=== PATIENT | female | born 1975 | race African-American/Black ===

== ENCOUNTER 2019-03-13 20:23 | Inpatient (IN) | payer OTHER ==
--- NOTE | 2019-03-13 21:34 | PDOC ---
History of Present Illness - General Chief Complaint: Pain Stated Complaint: ABD/PAIN/APPETITE LOSS Time Seen by Provider: 03/13/19 21:08 - History of Present Illness Initial Comments: 03/13/19 21:33 CHIEF COMPLAINT: multiple complaints HISTORY OF PRESENT ILLNESS: 44 yo F with hx of no significant PMH presents to ED with abd pain x 1 week accompanied with dysuria and pain with pain with BMs ( last BM was today and "loose"). Patient reports being concerned that she has been having unprotected sex and that she has had brownish/yellow vaginal discharge. LMP 10/16. Patient also c/o of headache, chills, and weight loss. However patient reports she was able to tolerate po today and had a chicken salad this afternoon. No recent travel or sick contacts. PAST MEDICAL HISTORY: Denies past medical history FAMILY HISTORY: Denies SOCIAL HISTORY: Denies tobacco, alcohol, illicit drug use. SURGICAL HISTORY: Denies ALLERGIES: PCN REVIEW OF SYSTEMS General/Constitutional: Chills, weight loss. Denies weakness. HEENT: Denies change in vision. Denies ear pain or discharge. Denies sore throat. Cardiovascular: Denies chest pain or shortness of breath. Respiratory: Denies cough, wheezing, or hemoptysis. Gastrointestinal: Denies nausea, vomiting, diarrhea or constipation. Denies rectal bleeding. Genitourinary: Brown/yellow vaginal discharge. Dysuria, denies hematuria. Musculoskeletal: Denies joint or muscle swelling or pain. Denies neck or back pain. Skin and breasts: Denies rash or easy bruising. Neurologic: Denies headache, vertigo, loss of consciousness, or loss of sensation. Psychiatric: Denies depression or anxiety. PHYSICAL EXAM General Appearance: Well-appearing, appropriately dressed. No apparent distress , no intoxication. HEENT: EOMI, PERRLA, normal ENT inspection, normal voice, TMs normal, pharynx normal. No conjunctival pallor. No photophobia, scleral icterus. Neck: Supple. Trachea midline. No tenderness, rigidity, carotid bruit, stridor , lymphadenopathy, or thyromegaly. Respiratory/Chest: Lungs CTAB. No shortness of breath, chest tenderness, respiratory distress, accessory muscle use. No crackles, rales, rhonchi, stridor , wheezing, dullness Cardiovascular: RRR. S1, S2. No JVD, murmur, bradycardia, tachycardia. Vascular Pulses: Dorsalis-Pedis (R): 2+, Dorsalis-Pedis (L): 2+ Gastrointestinal/Abdominal: TTP to b/l lower pelvis. Normal bowel sounds. No organomegaly, pulsatile mass, guarding, hernia, hepatomegaly, splenomegaly. Pelvic: External genitalia normal without lesions. Vaginal vault is clear without blood or discharge. Cervix is long and closed. +Cervical motion tenderness. Uterus is nontender and normal in size. Bilateral adnexal tenderness. Lymphatic: No adenopathy, tenderness. Musculoskeletal/Extremities: Normal inspection. FROM of all extremities, normal capillary refill. Pelvis Stable. No CVA tenderness. No tenderness to extremities, pedal edema, swelling, erythema or deformity. Integumentary: Appropriate color, dry, warm. No cyanosis, erythema, jaundice or rash Neurologic: regional account executive II-XII intact. Fully oriented, alert. Appropriate mood/affect. Motor strength 5/5. No appreciable EOM palsy, facial droop or sensory deficit. 03/13/19 21:40 Past History - Past Medical History Allergies/Adverse Reactions: Allergies Allergy/AdvReac Type Severity Reaction Status Date / Time Penicillins Allergy Hives Verified 03/14/19 02:41 Home Medications: Ambulatory Orders Doxycycline Hyclate 100 mg PO BID #14 tablet 03/14/19 - Psycho Social/Smoking Cessation Hx Smoking Status: No Smoking History: Never smoked Have you smoked in the past 12 months: No Number of Cigarettes Smoked Daily: 0 Information on smoking cessation initiated: No 'Breaking Loose' booklet given: 06/11/18 Hx Alcohol Use: No Drug/Substance Use Hx: No *Physical Exam - Vital Signs Last Vital Signs Temp Pulse Resp BP Pulse Ox 100.5 F H 115 H 20 124/67 97 03/13/19 20:32 03/13/19 20:32 03/13/19 20:32 03/13/19 20:32 03/13/19 20:32 ED Treatment Course - LABORATORY CBC & Chemistry Diagram: 03/14/19 07:41 03/14/19 07:41 Medical Decision Making - Medical Decision Making 03/13/19 21:41 44 yo F with hx of no significant PMH presents to ED with abd pain x 1 week accompanied with dysuria and pain with pain with BMs (last BM was today and "loose"). -urine -labs -tylenol 03/14/19 01:21 WBC 25, fluids given. US results: Left ovary not seen. No right ovarian torsion . Color flow with appropriate arterial and/or venous waveforms. Multiple hemorrhagic follicles/cysts within enlarged right ovary, largest cyst 3.9 cm. No free fluid. Normal uterus. Endometrial stripe complex 10 mm thick Pelvic exam concerning for PID, will treat with ceftriaxone and doxy. 03/14/19 02:09 patient with rigors after administration of ceftriaxone -tylenol -benadryl Discussed case with MD Crouch, patient pending blood cx/lactate/ctap. Discharge - Discharge Information Problems reviewed: Yes Clinical Impression/Diagnosis: Pelvic inflammatory disease, Sepsis Condition: Stable - Additional Discharge Information - Follow up/Referral - Patient Discharge Instructions - Post Discharge Activity
[2019-03-13] MEDS ORDERED: ACETAMINOPHEN 325 MG TABLET (FP) PO ONE (21:41)
[2019-03-13 22:22] LABS: HYALINE CASTS 1 /lpf (0-8); PH,URINE >= 9.0 (5.0-8.0); URINE APPEARANCE CLEAR; URINE BACTERIA 77.9 /hpf (NEGATIVE); URINE BILIRUBIN NEGATIVE (NEGATIVE); URINE COLOR YELLOW; URINE GLUCOSE (UA) NEGATIVE (NEGATIVE); URINE KETONE NEGATIVE (NEGATIVE); URINE LEUK ESTERASE NEGATIVE (NEGATIVE); URINE NITRITE NEGATIVE (NEGATIVE); URINE PROTEIN 2+ (NEGATIVE); URINE WBC 4 /hpf (0-5)
[2019-03-13 23:50] LABS: BASO % 0.8 % (0-2.0); EOS % 0.2 % (0-4.5); HEMATOCRIT 26.3 % (32.4-45.2); HEMOGLOBIN 8.5 GM/dL (10.7-15.3); LYMPH % 8.2 % (8-40); MCH 28.8 pg (25.7-33.7); MCHC 32.2 g/dl (32.0-36.0); MEAN CELL VOLUME 89.7 fl (80-96); MEAN PLT VOLUME 7.4 fl (7.5-11.1); MONO % 8.3 % (3.8-10.2); NEUT % 82.5 % (42.8-82.8); PLATELET COUNT 458 K/MM3 (134-434); RBC 2.93 M/mm3 (3.60-5.2); RDW 15.5 % (11.6-15.6); WHITE BLOOD COUNT 25.6 K/mm3 (4.0-10.0)
[2019-03-14] MEDS ORDERED: SODIUM CHLORIDE 0.9% 500 ML INFUS.BAG IV ONE ×3 (00:03→05:39)
[2019-03-14 00:18] LABS: ALBUMIN 2.6 g/dl (3.4-5.0); BILIRUBIN,TOTAL 0.4 mg/dL (0.2-1); BLOOD UREA NITROGEN 12.9 mg/dL (7-18); CALCIUM 8.4 mg/dL (8.5-10.1); CREATININE 0.6 mg/dL (0.55-1.3); POTASSIUM 4.2 mmol/L (3.5-5.1)
[2019-03-14 00:51] LABS: PLATELET ESTIMATE SLT INCREASE
[2019-03-14] MEDS ORDERED: DOXYCYCLINE HYCLATE 100 MG CAPSULE PO ONE ×2 (01:18→01:28)
[2019-03-14] MEDS ORDERED: cefTRIAXone SODIUM 1 GM VIAL ONE (01:28)
[2019-03-14] MEDS ORDERED: LIDOCAINE HCL 1%, 10 MG/ML (20ML VIAL) ONE (01:28)
[2019-03-14] MEDS ORDERED: ACETAMINOPHEN 1000 MG/100 ML VIAL (NON FORMULARY) IVPB ONE (02:04)
[2019-03-14] MEDS ORDERED: ACETAMINOPHEN INJECTION 100 ML IVPB ONE (02:05)
[2019-03-14] MEDS ORDERED: KETOROLAC TROMETHAMINE 15 MG/ML VIAL IVPUSH ONE (03:11)
--- NOTE | 2019-03-14 03:14 | PDOC ---
*Physical Exam - Vital Signs Last Vital Signs Temp Pulse Resp BP Pulse Ox 101.9 F H 118 H 22 H 102/59 L 100 03/14/19 02:27 03/14/19 02:27 03/14/19 02:27 03/14/19 02:48 03/14/19 02:27 ED Treatment Course - LABORATORY CBC & Chemistry Diagram: 03/13/19 23:39 03/13/19 23:39 - ADDITIONAL ORDERS Additional order review: Laboratory Results 03/13/19 03/13/19 03/13/19 23:39 23:39 22:05 Sodium 132 L Potassium 4.2 Chloride 99 Carbon Dioxide 27 Anion Gap 6 L BUN 12.9 Creatinine 0.6 Est GFR (CKD-EPI)AfAm 130.30 Est GFR (CKD-EPI)NonAf 112.42 Random Glucose 104 Calcium 8.4 L Total Bilirubin 0.4 AST 37 ALT 48 Alkaline Phosphatase 106 Total Protein 7.0 Albumin 2.6 L Lipase 146 Urine Color Yellow Urine Appearance Clear Urine pH >= 9.0 H D Ur Specific [place] 1.022 Urine Protein 2+ H Urine Glucose (UA) Negative Urine Ketones Negative Urine Blood Negative Urine Nitrite Negative Urine Bilirubin Negative Urine Urobilinogen 1.0 Ur Leukocyte Esterase Negative Urine WBC (Auto) 4 Urine RBC (Auto) 4.0 Urine Casts (Auto) 1 U Epithel Cells (Auto) 5.0 Urine Bacteria (Auto) 77.9 Urine HCG, Qual 03/13/19 22:05 Sodium Potassium Chloride Carbon Dioxide Anion Gap BUN Creatinine Est GFR (CKD-EPI)AfAm Est GFR (CKD-EPI)NonAf Random Glucose Calcium Total Bilirubin AST ALT Alkaline Phosphatase Total Protein Albumin Lipase Urine Color Urine Appearance Urine pH Ur Specific [place] Urine Protein Urine Glucose (UA) Urine Ketones Urine Blood Urine Nitrite Urine Bilirubin Urine Urobilinogen Ur Leukocyte Esterase Urine WBC (Auto) Urine RBC (Auto) Urine Casts (Auto) U Epithel Cells (Auto) Urine Bacteria (Auto) Urine HCG, Qual Negative 03/13/19 23:39 RBC 2.93 L MCV 89.7 MCHC 32.2 RDW 15.5 MPV 7.4 L Neutrophils % 82.5 Lymphocytes % 8.2 Monocytes % 8.3 Eosinophils % 0.2 Basophils % 0.8 - Medications Given in the ED: ED Medications Discontinued Medications Generic Name Dose Route Start Last Admin Trade Name Freq PRN Reason Stop Dose Admin Acetaminophen 650 mg 03/13/19 21:41 03/13/19 21:55 Tylenol - PO 03/13/19 21:42 650 mg ONCE ONE Administration Acetaminophen 1,000 mg 03/14/19 02:04 03/14/19 02:08 Ofirmev Injection - IVPB 03/14/19 02:05 1,000 mg ONCE ONE Administration Ceftriaxone Sodium 250 mg 03/14/19 01:18 03/14/19 01:40 Rocephin - IM 03/14/19 01:19 250 mg ONCE ONE Administration Diphenhydramine HCl 50 mg 03/14/19 02:04 03/14/19 02:08 Benadryl Injection - IVPUSH 03/14/19 02:05 50 mg ONCE ONE Administration Doxycycline Hyclate 100 mg 03/14/19 01:18 03/14/19 01:32 Vibramycin - PO 03/14/19 01:19 100 mg ONCE ONE Administration Sodium Chloride 1,000 ml 03/14/19 00:03 03/14/19 01:26 Normal Saline - IV 03/14/19 00:04 1,000 ml ONCE ONE Administration Medical Decision Making - Medical Decision Making 03/14/19 03:11 pt signed out from CONSUMER INSIGHT ANALYST Jill at 2AM in summary, 44 YOF presenting with lower abdominal pain, fever and chills. on bedside exam, +abdomen diffusely tender and guarded, rigid. +fever and tachycardia - lactic and blood cultures ordered, urine cultures pending already. labs notable for high leukocytosis 25K. received IVF 1 liter, tylenol, ceftriaxone and doxycycline for the PID. GC/chlamydia sent. TVUS w/hemorrhagic cysts, no torsion 03/14/19 03:12 - dosed for additional IVF, toradol, CT a/p to eval for perf/intra abdominal source of infection. lactic is normal CT abdomen and pelvis with complex multiloculated right adnexal mass which is suspicious for hydrosalpinx/pyosalpinx and tubo-ovarian complex, suspicious for PID which pt is currently receiving IV ceftriaxone and doxycycline initially planned for outpatient tx, but now with inpatient requirements, broadened coverage to cefotetan 2g IV with doxycycline. low likelihood of cross reactivity with pcn allergy, as pt tolerated IM ceftriaxone. BUSINESS DEVELOPMENT REPRESENTATIVE consult in the AM, paged out to [facility] physician - for tonight. admit to medical service for PID/sepsis, IV abx, pain control, hydration, clinical reexam, school bus aide consult, admit to Dr Colon. 03/14/19 04:15 03/14/19 04:27 Discharge - Discharge Information Problems reviewed: Yes Clinical Impression/Diagnosis: Pelvic inflammatory disease, Sepsis Condition: Guarded - Admission Yes - Additional Discharge Information - Follow up/Referral - Patient Discharge Instructions - Post Discharge Activity
[2019-03-14] MEDS ORDERED: KETOROLAC TROMETHAMINE 15 MG/ML VIAL ONE (03:16)
--- NOTE | 2019-03-14 04:20 | PN ---
Teaching Attending Note Name of Resident: Yoly Perez ATTENDING PHYSICIAN STATEMENT I saw and evaluated the patient. I reviewed the resident's note and discussed the case with the resident. I agree with the resident's findings and plan as documented. SUBJECTIVE: 44-year-old woman with no reported past medical history complained of lower abdominal pain for 1 week associated with dysuria and some loose bowel movements. Patient mentioned that she was having brownish vaginal discharge the past few days. Complained of chills and fever of 101 Fahrenheit. She was not taking any medications for her abdominal pain. Denied any new sex partners. Is sexually active with her and denies other partners. No history of STDs reported being tested for HIV 2 years ago and result was negative. OBJECTIVE: Last Vital Signs Temp Pulse Resp BP Pulse Ox 101.9 F H 110 H 18 102/59 L 97 03/14/19 02:27 03/14/19 05:17 03/14/19 05:17 03/14/19 02:48 03/14/19 05:17 GENERAL: Well developed, well nourished. Awake and alert. No acute distress. HEENT: Normocephalic, atraumatic. PERRLA, EOMI. No conjunctival pallor. Sclera are non- icteric. Moist mucous membranes. Oropharynx is clear. NECK: Supple. Full ROM. No JVD. Carotid pulses 2+ and symmetric, without bruits. No thyromegaly. No lymphadenopathy. CARDIOVASCULAR: Regular rate and rhythm. No murmurs, rubs, or gallops. Distal pulses are 2+ and symmetric. PULMONARY: No evidence of respiratory distress. Lungs clear to auscultation bilaterally. No wheezing, rales or rhonchi. ABDOMINAL: Soft. Non-tender. Non-distended. Pain upon palpation to right lower and left lower quadrants as well as suprapubic tenderness MUSCULOSKELETAL Normal range of motion at all joints. No bony deformities or tenderness. No CVA tenderness. EXTREMITIES: No cyanosis. No clubbing. No edema. No calf tenderness. SKIN: Warm and dry. Normal capillary refill. No rashes. No jaundice. PSYCHIATRIC: Cooperative. Good eye contact. Appropriate mood and affect. On pelvic exam performed by ER, patient was noted to have cervical motion tenderness on pelvic exam and bilateral adnexal tenderness Abnormal Lab Results 03/13/19 03/13/19 03/13/19 22:05 23:39 23:39 WBC 25.6 H RBC 2.93 L Hgb 8.5 L Hct 26.3 L Plt Count 458 H MPV 7.4 L Absolute Neuts (auto) 21.2 H Sodium 132 L Anion Gap 6 L Calcium 8.4 L Albumin 2.6 L Urine pH >= 9.0 H D Urine Protein 2+ H Imaging studies reviewed 8.8 cm complex multiloculated right adnexal mass containing tubular portion, suspect hydrosalpinx or pyosalpinx with tubo-ovarian complex. Retroperitoneal lymph node enlargement, indeterminate. No bowel obstruction or inflammation ASSESSMENT AND PLAN: 44-year-old woman with suspected cervicitis and probable PID, Severe leukocytosis. Penicillin allergy with hives Send urine for GC/chlamydia NAAT Send RPR HIV serology Viral hepatitis serology ICE CREAM DISPENSER consult Pelvic and transvaginal ultrasound follow-up Levofloxacin plus metronidazole. Patient has underlying penicillin allergy documented and would be able to transition easily to p.o. with this regimen #DVT prophylaxisheparin subcutaneously
[2019-03-14] MEDS ORDERED: CEFOTETAN DISODIUM 2 GM in DEXTROSE 5%-WATER - 100 ML IVPB ONE (04:24)
[2019-03-14] MEDS ORDERED: ACETAMINOPHEN 325 MG TABLET (FP) PO PRN (05:18)
[2019-03-14] MEDS ORDERED: SODIUM CHLORIDE 1,000 ML IV SCH ×2 (05:30→08:16)
--- NOTE | 2019-03-14 05:50 | HP ---
CHIEF COMPLAINT: lower abdominal pain PCP: Dr. Castaneda HISTORY OF PRESENT ILLNESS: Ms. Luevano is a 44 year old lady with no reported pmhx, presenting to the ED complaining of 1 week of lower abdominal pain associated with yellowish/ brown vaginal discharge. The patient states that since her symptoms began she has tried to take aleve however this did not help at all. The pt has not noted anything that makes her symptoms better or worse. She states it hurts when she pees but denies burning. She states that she is in a monogamous relationship with her . She says that they do not use any type of contraception and the last time they had intercourse was in early January. Although they are , she reports they do not live together and she has not seen him in a few weeks. She states that she did not notice any pain with intercourse. She states she has a regular menstrual cycle and her periods usually last 5 days. Her LMP was at the end of January into early Mar and was normal. The patient reports she has not followed up with an PAINT MIXER in a few years but states she tested negative for HIV a year ago. On ROS the pt endorsed fevers/ chills/ pain on urination/ back pain and diarrhea. The patient denies CP, SOB, nausea/ vomiting, new rashes, itching, or hematuria. 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 Allergies Penicillins Allergy (Verified 03/14/19 02:41) Hives HOME MEDICATIONS: Home Medications Medication Instructions Recorded Doxycycline Hyclate 100 mg PO BID #14 tablet 03/14/19 REVIEW OF SYSTEMS CONSTITUTIONAL: fever, chills, Absent: diaphoresis, generalized weakness, malaise, loss of appetite, weight change HEENT: Absent: rhinorrhea, nasal congestion, throat pain, throat swelling, difficulty swallowing, mouth swelling, ear pain, eye pain, visual changes CARDIOVASCULAR: Absent: chest pain, syncope, palpitations, irregular heart rate, lightheadedness , peripheral edema RESPIRATORY: Absent: cough, shortness of breath, dyspnea with exertion, orthopnea, wheezing, stridor, hemoptysis GASTROINTESTINAL: abdominal pain, diarrhea, Absent: , abdominal distension, nausea, vomiting, constipation, melena, hematochezia GENITOURINARY: dysuria Absent: , frequency, urgency, hesitancy, hematuria, flank pain, genital pain MUSCULOSKELETAL: back pain, Absent: myalgia, arthralgia, joint swelling, neck pain SKIN: Absent: rash, itching, pallor HEMATOLOGIC/IMMUNOLOGIC: Absent: easy bleeding, easy bruising, lymphadenopathy, frequent infections ENDOCRINE: Absent: unexplained weight gain, unexplained weight loss, heat intolerance, cold intolerance NEUROLOGIC: Absent: headache, focal weakness or paresthesias, dizziness, unsteady gait, seizure, mental status changes, bladder or bowel incontinence PSYCHIATRIC: Absent: anxiety, depression, suicidal or homicidal ideation, hallucinations. PHYSICAL EXAMINATION Vital Signs - 24 hr 03/13/19 03/14/19 03/14/19 20:32 00:57 01:43 Temperature 100.5 F H 99.1 F Pulse Rate 115 H Pulse Rate [ 84 Left Radial] Respiratory 20 18 Rate Blood Pressure 124/67 Blood Pressure [Right Arm] O2 Sat by Pulse 97 Oximetry (%) 03/14/19 03/14/19 03/14/19 02:27 02:48 05:17 Temperature 101.9 F H Pulse Rate Pulse Rate [ 118 H 110 H Left Radial] Respiratory 22 H 18 Rate Blood Pressure Blood Pressure 128/107 H 102/59 L [Right Arm] O2 Sat by Pulse 100 97 Oximetry (%) GENERAL: Sleepy but arousable and fully oriented, in no acute distress. HEAD: Normal with no signs of trauma. EYES: Pupils equal, round and reactive to light, extraocular movements intact, sclera anicteric, conjunctiva clear. No lid lag. EARS, NOSE, THROAT: Ears normal, nares patent, oropharynx clear without exudates. Dry mucous membranes. NECK: Normal range of motion, supple without lymphadenopathy, JVD, or masses. LUNGS: Breath sounds equal, clear to auscultation bilaterally. No wheezes, and no crackles. No accessory muscle use. HEART: Regular rhythm, tachycardic, normal S1 and S2 without murmur, rub or gallop. ABDOMEN: Soft, nontender, not distended, normoactive bowel sounds, no guarding, no rebound, no masses. No hepatomegaly or splenomegaly. MUSCULOSKELETAL: Normal range of motion at all joints. No bony deformities or tenderness. No CVA tenderness. UPPER EXTREMITIES: 2+ pulses, warm, well-perfused. No cyanosis. No clubbing. No peripheral edema. LOWER EXTREMITIES: 2+ pulses, warm, well-perfused. No calf tenderness. No peripheral edema. NEUROLOGICAL: Cranial nerves II-XII intact. Normal speech. Normal gait. PSYCHIATRIC: Cooperative. Good eye contact. Appropriate mood and affect. SKIN: Warm, dry, normal turgor, no rashes or lesions noted, normal capillary refill. PELVIC EXAM done by ED, as follows: " External genitalia normal without lesions. Vaginal vault is clear without blood or discharge. Cervix is long and closed. +Cervical motion tenderness. Uterus is nontender and normal in size. Bilateral adnexal tenderness. " Laboratory Results - last 24 hr 03/13/19 03/13/19 03/13/19 22:05 22:05 23:39 WBC 25.6 H RBC 2.93 L Hgb 8.5 L Hct 26.3 L MCV 89.7 MCH 28.8 MCHC 32.2 RDW 15.5 Plt Count 458 H MPV 7.4 L Absolute Neuts (auto) 21.2 H Total Counted 100 Neutrophils % 82.5 Neutrophils % (Manual) 70.0 Band Neutrophils % 4.0 Lymphocytes % 8.2 Lymphocytes % (Manual) 16.0 Monocytes % 8.3 Monocytes % (Manual) 10 Eosinophils % 0.2 Basophils % 0.8 Nucleated RBC % 0 Platelet Estimate Slt increase Platelet Comment No clotting detected Sodium Potassium Chloride Carbon Dioxide Anion Gap BUN Creatinine Est GFR (CKD-EPI)AfAm Est GFR (CKD-EPI)NonAf Random Glucose Lactic Acid Calcium Total Bilirubin AST ALT Alkaline Phosphatase Total Protein Albumin Lipase Urine Color Yellow Urine Appearance Clear Urine pH >= 9.0 H D Ur Specific [place] 1.022 Urine Protein 2+ H Urine Glucose (UA) Negative Urine Ketones Negative Urine Blood Negative Urine Nitrite Negative Urine Bilirubin Negative Urine Urobilinogen 1.0 Ur Leukocyte Esterase Negative Urine WBC (Auto) 4 Urine RBC (Auto) 4.0 Urine Casts (Auto) 1 U Epithel Cells (Auto) 5.0 Urine Bacteria (Auto) 77.9 Urine HCG, Qual Negative 03/13/19 03/13/19 03/14/19 23:39 23:39 03:00 WBC RBC Hgb Hct MCV MCH MCHC RDW Plt Count MPV Absolute Neuts (auto) Total Counted Neutrophils % Neutrophils % (Manual) Band Neutrophils % Lymphocytes % Lymphocytes % (Manual) Monocytes % Monocytes % (Manual) Eosinophils % Basophils % Nucleated RBC % Platelet Estimate Platelet Comment Sodium 132 L Potassium 4.2 Chloride 99 Carbon Dioxide 27 Anion Gap 6 L BUN 12.9 Creatinine 0.6 Est GFR (CKD-EPI)AfAm 130.30 Est GFR (CKD-EPI)NonAf 112.42 Random Glucose 104 Lactic Acid 1.8 Calcium 8.4 L Total Bilirubin 0.4 AST 37 ALT 48 Alkaline Phosphatase 106 Total Protein 7.0 Albumin 2.6 L Lipase 146 Urine Color Urine Appearance Urine pH Ur Specific [place] Urine Protein Urine Glucose (UA) Urine Ketones Urine Blood Urine Nitrite Urine Bilirubin Urine Urobilinogen Ur Leukocyte Esterase Urine WBC (Auto) Urine RBC (Auto) Urine Casts (Auto) U Epithel Cells (Auto) Urine Bacteria (Auto) Urine HCG, Qual ASSESSMENT/PLAN: Ms. Luevano is a 44 year old lady with no reported pmhx, presenting to the ED complaining of 1 week of lower abdominal pain associated with yellowish/ brown vaginal discharge. CT Abdomen/ pelvis showing 8.8 cm complex multiloculated right adnexal mass containing tubular portion, suspect hydrosalpinx or pyosalpinx with tubo-ovarian complex. Retroperitoneal lymph node enlargement, indeterminate. No bowel obstruction or inflammation. # Cervicitis - probable PID given pelvic exam with + CMT, imaging suggestive of PID and severe leukocytosis. Penicillin allergy with hives - Send urine for GC/chlamydia NAAT - Send RPR - HIV serology - Viral hepatitis serology - PAINT MIXER consult, appreciate recommendations - F/u pelvic and transvaginal ultrasound - Levofloxacin 750mg IVPB daily plus metronidazole 500mg IVPB q8h> patient with penicillin allergy, this regimen allows easy transition to PO meds - Tylenol 650 PO q4h prn for pain #FEN - IVNS @ 100cc/h - replete PRN - regular diet #PPx - DVT prophylaxis: heparin 5000u SQ TID # Dispo- admit to medsurg, full code Visit type - Emergency Visit Emergency Visit: Yes ED Registration Date: 03/14/19 Care time: The patient presented to the Emergency Department on the above date and was hospitalized for further evaluation of their emergent condition. - New Patient This patient is new to me today: Yes Date on this admission: 03/14/19 - Critical Care Critical Care patient: No ATTENDING PHYSICIAN STATEMENT I saw and evaluated the patient. I reviewed the resident's note and discussed the case with the resident. I agree with the resident's findings and plan as documented. SUBJECTIVE: OBJECTIVE: ASSESSMENT AND PLAN:
[2019-03-14] MEDS ORDERED: HEPARIN NA (PORCINE) 5,000 UNITS/ML 1ML VIAL SQ SCH (06:00)
[2019-03-14] MEDS ORDERED: HEPARIN NA (PORCINE) 5,000 UNITS/ML 1ML VIAL ONE (06:15)
[2019-03-14] MEDS ORDERED: AZTREONAM 2 GM in DEXTROSE 5%-WATER 100 ML IVPB ONE (07:55)
--- NOTE | 2019-03-14 08:05 | PN ---
Teaching Attending Note Name of Resident: Zhao Vallejo ATTENDING PHYSICIAN STATEMENT I saw and evaluated the patient. I reviewed the resident's note and discussed the case with the resident. I agree with the resident's findings and plan as documented with exceptions below. SUBJECTIVE: Notified by ED RN of overnight, patient seen stat. Patient currently lethargic, weak, generalized abdominal pain, unchanged from admission. Also reports vaginal discharge for last 1 week. No reported fevers or chills, but decreased oral intake. OBJECTIVE: Vital Signs Period Temp Pulse Resp BP Sys/Ceballos Pulse Ox Last 24 Hr 98.2 F-101.9 F 84-118 17-22 84-128/52-107 97-100 Intake & Output 03/11/19 03/12/19 03/13/19 03/14/19 23:59 23:59 23:59 23:59 Intake Total 3000 Balance 3000 Weight 128 lb General: lethargic weak looking in bed Neck: soft, supple HEENT: dry mucous membrane Abdomen: generalized guarding and tenderness more in bilateral lower quadrant, rigidity noted, pos bowel sounds Extremities: no edema Home Medications Medication Instructions Recorded Doxycycline Hyclate 100 mg PO BID #14 tablet 03/14/19 Active Medications Acetaminophen (Tylenol -) 650 mg PO Q4H PRN PRN Reason: FEVER Chlorhexidine Gluconate (Hibiclens For Decolonization -) 1 applic TP HS [facility] Heparin Sodium (Porcine) (Heparin -) 5,000 unit SQ TID [facility] Last Admin: 03/14/19 06:18 Dose: Not Given Metronidazole (Flagyl 500mg Premixed Ivpb -) 500 mg in 100 mls @ 100 mls/hr IVPB Q8H-IV [facility] Last Admin: 03/14/19 07:37 Dose: 100 mls/hr Sodium Chloride (Normal Saline -) 1,000 mls @ 100 mls/hr IV ASDIR JULY Last Admin: 03/14/19 05:35 Dose: 100 mls/hr Levofloxacin (Levaquin 750 Mg Premixed Ivpb -) 750 mg in 150 mls @ 100 mls/hr IVPB DAILY [facility]; Protocol Aztreonam 2 gm/ Dextrose 100 mls @ 100 mls/hr IVPB ONCE ONE; Protocol Stop: 03/14/19 08:54 Mupirocin (Bactroban Ointment (For Decolonization) -) 1 applic NS BID [facility] Stop: 03/19/19 09:59 Laboratory Results - last 24 hr 03/13/19 03/13/19 03/13/19 22:05 22:05 23:39 WBC 25.6 H RBC 2.93 L Hgb 8.5 L Hct 26.3 L MCV 89.7 MCH 28.8 MCHC 32.2 RDW 15.5 Plt Count 458 H MPV 7.4 L Absolute Neuts (auto) 21.2 H Total Counted 100 Neutrophils % 82.5 Neutrophils % (Manual) 70.0 Band Neutrophils % 4.0 Lymphocytes % 8.2 Lymphocytes % (Manual) 16.0 Monocytes % 8.3 Monocytes % (Manual) 10 Eosinophils % 0.2 Basophils % 0.8 Nucleated RBC % 0 Platelet Estimate Slt increase Platelet Comment No clotting detected Sodium Potassium Chloride Carbon Dioxide Anion Gap BUN Creatinine Est GFR (CKD-EPI)AfAm Est GFR (CKD-EPI)NonAf Random Glucose Lactic Acid Calcium Total Bilirubin AST ALT Alkaline Phosphatase Total Protein Albumin Lipase Urine Color Yellow Urine Appearance Clear Urine pH >= 9.0 H D Ur Specific [place] 1.022 Urine Protein 2+ H Urine Glucose (UA) Negative Urine Ketones Negative Urine Blood Negative Urine Nitrite Negative Urine Bilirubin Negative Urine Urobilinogen 1.0 Ur Leukocyte Esterase Negative Urine WBC (Auto) 4 Urine RBC (Auto) 4.0 Urine Casts (Auto) 1 U Epithel Cells (Auto) 5.0 Urine Bacteria (Auto) 77.9 Urine HCG, Qual Negative 03/13/19 03/13/19 03/14/19 23:39 23:39 03:00 WBC RBC Hgb Hct MCV MCH MCHC RDW Plt Count MPV Absolute Neuts (auto) Total Counted Neutrophils % Neutrophils % (Manual) Band Neutrophils % Lymphocytes % Lymphocytes % (Manual) Monocytes % Monocytes % (Manual) Eosinophils % Basophils % Nucleated RBC % Platelet Estimate Platelet Comment Sodium 132 L Potassium 4.2 Chloride 99 Carbon Dioxide 27 Anion Gap 6 L BUN 12.9 Creatinine 0.6 Est GFR (CKD-EPI)AfAm 130.30 Est GFR (CKD-EPI)NonAf 112.42 Random Glucose 104 Lactic Acid 1.8 Calcium 8.4 L Total Bilirubin 0.4 AST 37 ALT 48 Alkaline Phosphatase 106 Total Protein 7.0 Albumin 2.6 L Lipase 146 Urine Color Urine Appearance Urine pH Ur Specific [place] Urine Protein Urine Glucose (UA) Urine Ketones Urine Blood Urine Nitrite Urine Bilirubin Urine Urobilinogen Ur Leukocyte Esterase Urine WBC (Auto) Urine RBC (Auto) Urine Casts (Auto) U Epithel Cells (Auto) Urine Bacteria (Auto) Urine HCG, Qual CT A/P prelim results reviewed - ASSESSMENT AND PLAN: 44 yof with severe sepsis, from PID/Suspect right hydro vs pyosalpinx -Severe sepsis -Right 8.8 cm adenexal mass, suspsect hydro vs pyosalpinx of tubo-ovarian complex -Pelvic Inflammatory disease Plan: Patient seen in ED, hypotensive, SBP 80s-90s on 4th Liter NS bolus, lethargic, tender rigid abdomen with guarding. ICU consulted, patient accepted. Called Dr. Olivas who is Ob-stock tracer loss prevention associate, case discussed in detail with her, explained the need for emergent evaluation and discussed current clinical findings and hemodynamics in detail with her. Will continue serial abdominal exams and monitor closely in ICU, follow up Ob- stock tracer eval Aztreonam x 1. Continue doxycycline/flagyl,. ID consult, informed. NPO for now, hold DVTPPx Total critical care time at bedside spent 25 min Total time spent in patient visit, discussion with ED RN, co-ordination of care with ICU, ob-stock tracer 45 min.
[2019-03-14 08:07] LABS: BASO % 0.1 % (0-2.0); HEMATOCRIT 27.6 % (32.4-45.2); LYMPH % 3.2 % (8-40); MCH 29.7 pg (25.7-33.7); MCHC 32.7 g/dl (32.0-36.0); MEAN CELL VOLUME 90.8 fl (80-96); MEAN PLT VOLUME 7.4 fl (7.5-11.1); MONO % 5.3 % (3.8-10.2); NEUT % 91.4 % (42.8-82.8); PLATELET COUNT 416 K/MM3 (134-434); RBC 3.04 M/mm3 (3.60-5.2); RDW 15.8 % (11.6-15.6); WHITE BLOOD COUNT 23.8 K/mm3 (4.0-10.0)
--- NOTE | 2019-03-14 08:16 | CONSULT ---
Consultation: REQUESTING PROVIDER: Dr. Pinto CONSULT REQUEST: We have been asked to medically evaluate this patient for ICU admission HISTORY OF PRESENT ILLNESS: Patient is a 44 year old female with no reported significant medical/ surgical history presents with complaint of right sided abdominal pain. Symptoms ongoing for past week, without clear inciting factor. Patient has been taking Tylenol without palliative effect. Denies recent antibiotic use. She endorses associated brown/ yellow vaginal discharge. She endorses subjective fevers, chills, nausea. Denies chest pain, palpitations, shortness of breath. 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 Currently not sexually active, however states her only partner is . Denies any former diagnosis of STI. States she was last tested for HIV 1 year ago and was negative. REVIEW OF SYSTEMS: As per HPI PHYSICAL EXAMINATION Vital Signs - 24 hr 03/13/19 03/14/19 03/14/19 20:32 00:57 01:43 Temperature 100.5 F H 99.1 F Pulse Rate 115 H Pulse Rate [ 84 Left Radial] Respiratory 20 18 Rate Blood Pressure 124/67 Blood Pressure [Right Arm] O2 Sat by Pulse 97 Oximetry (%) 03/14/19 03/14/19 03/14/19 02:27 02:48 05:17 Temperature 101.9 F H Pulse Rate Pulse Rate [ 118 H 110 H Left Radial] Respiratory 22 H 18 Rate Blood Pressure Blood Pressure 128/107 H 102/59 L [Right Arm] O2 Sat by Pulse 100 97 Oximetry (%) 03/14/19 03/14/19 03/14/19 05:39 06:00 06:23 Temperature 98.6 F Pulse Rate Pulse Rate [ 106 H Left Radial] Respiratory 18 Rate Blood Pressure Blood Pressure 85/52 L 90/58 L [Right Arm] O2 Sat by Pulse 97 Oximetry (%) 03/14/19 03/14/19 07:35 07:40 Temperature 98.2 F Pulse Rate Pulse Rate [ 105 H Left Radial] Respiratory 17 Rate Blood Pressure Blood Pressure 84/60 L [Right Arm] O2 Sat by Pulse 99 98 Oximetry (%) GENERAL: Sleepy, arousable to voice, fully oriented, in no acute distress. HEAD: Normal with no signs of trauma. EYES: Pupils equal, round and reactive to light, extraocular movements intact, sclera anicteric, conjunctiva clear. No lid lag. EARS, NOSE, THROAT: Ears normal, nares patent, oropharynx clear without exudates. Moist mucous membranes. NECK: Normal range of motion, supple without lymphadenopathy, JVD, or masses. LUNGS: Breath sounds equal, clear to auscultation bilaterally. No wheezes, and no crackles. No accessory muscle use. HEART: Regular rate and rhythm, normal S1 and S2 without murmur, rub or gallop. ABDOMEN: Tense, with guarding. Diffusely tender to palpation worst at right lower quadrant. Normomoactive bowel sounds X4 quadrants. MUSCULOSKELETAL: Normal range of motion at all joints. No bony deformities or tenderness. No CVA tenderness. UPPER EXTREMITIES: 2+ pulses, warm, well-perfused. No cyanosis. No clubbing. Cap refill <2 seconds. No peripheral edema. LOWER EXTREMITIES: 2+ pulses, warm, well-perfused. No calf tenderness. No peripheral edema. NEUROLOGICAL: Cranial nerves II-XII intact. Normal speech. Normal gait. PSYCHIATRIC: Cooperative. Good eye contact. Appropriate mood and affect. SKIN: Warm, dry, normal turgor, no rashes or lesions noted. Laboratory Results - last 24 hr 03/13/19 03/13/19 03/13/19 22:05 22:05 23:39 WBC 25.6 H RBC 2.93 L Hgb 8.5 L Hct 26.3 L MCV 89.7 MCH 28.8 MCHC 32.2 RDW 15.5 Plt Count 458 H MPV 7.4 L Absolute Neuts (auto) 21.2 H Total Counted 100 Neutrophils % 82.5 Neutrophils % (Manual) 70.0 Band Neutrophils % 4.0 Lymphocytes % 8.2 Lymphocytes % (Manual) 16.0 Monocytes % 8.3 Monocytes % (Manual) 10 Eosinophils % 0.2 Basophils % 0.8 Nucleated RBC % 0 Platelet Estimate Slt increase Platelet Comment No clotting detected Sodium Potassium Chloride Carbon Dioxide Anion Gap BUN Creatinine Est GFR (CKD-EPI)AfAm Est GFR (CKD-EPI)NonAf Random Glucose Lactic Acid Calcium Total Bilirubin AST ALT Alkaline Phosphatase Total Protein Albumin Lipase Urine Color Yellow Urine Appearance Clear Urine pH >= 9.0 H D Ur Specific [place] 1.022 Urine Protein 2+ H Urine Glucose (UA) Negative Urine Ketones Negative Urine Blood Negative Urine Nitrite Negative Urine Bilirubin Negative Urine Urobilinogen 1.0 Ur Leukocyte Esterase Negative Urine WBC (Auto) 4 Urine RBC (Auto) 4.0 Urine Casts (Auto) 1 U Epithel Cells (Auto) 5.0 Urine Bacteria (Auto) 77.9 Urine HCG, Qual Negative 03/13/19 03/13/19 03/14/19 23:39 23:39 03:00 WBC RBC Hgb Hct MCV MCH MCHC RDW Plt Count MPV Absolute Neuts (auto) Total Counted Neutrophils % Neutrophils % (Manual) Band Neutrophils % Lymphocytes % Lymphocytes % (Manual) Monocytes % Monocytes % (Manual) Eosinophils % Basophils % Nucleated RBC % Platelet Estimate Platelet Comment Sodium 132 L Potassium 4.2 Chloride 99 Carbon Dioxide 27 Anion Gap 6 L BUN 12.9 Creatinine 0.6 Est GFR (CKD-EPI)AfAm 130.30 Est GFR (CKD-EPI)NonAf 112.42 Random Glucose 104 Lactic Acid 1.8 Calcium 8.4 L Total Bilirubin 0.4 AST 37 ALT 48 Alkaline Phosphatase 106 Total Protein 7.0 Albumin 2.6 L Lipase 146 Urine Color Urine Appearance Urine pH Ur Specific [place] Urine Protein Urine Glucose (UA) Urine Ketones Urine Blood Urine Nitrite Urine Bilirubin Urine Urobilinogen Ur Leukocyte Esterase Urine WBC (Auto) Urine RBC (Auto) Urine Casts (Auto) U Epithel Cells (Auto) Urine Bacteria (Auto) Urine HCG, Qual Active Medications Generic Name Dose Route Start Last Admin Trade Name Freq PRN Reason Stop Dose Admin Acetaminophen 650 mg 03/14/19 05:18 Tylenol - PO Q4H PRN FEVER Chlorhexidine Gluconate 1 applic 03/14/19 22:00 Hibiclens For Decolonization - TP HS JULY Heparin Sodium (Porcine) 5,000 unit 03/14/19 06:00 03/14/19 06:18 Heparin - SQ Not Given TID JULY Metronidazole 500 mg in 100 mls @ 100 mls/hr 03/14/19 07:00 03/14/19 07:37 Flagyl 500mg Premixed Ivpb - IVPB 100 mls/hr Q8H-IV JULY Administration Sodium Chloride 1,000 mls @ 100 mls/hr 03/14/19 05:30 03/14/19 05:35 Normal Saline - IV 100 mls/hr ASDIR JULY Administration Levofloxacin 750 mg in 150 mls @ 100 mls/hr 03/14/19 10:00 Levaquin 750 Mg Premixed Ivpb - IVPB DAILY JULY Protocol Aztreonam 2 gm/ Dextrose 100 mls @ 100 mls/hr 03/14/19 07:55 IVPB 03/14/19 08:54 ONCE ONE Protocol Mupirocin 1 applic 03/14/19 10:00 Bactroban Ointment (For Decolonization) - NS 03/19/19 09:59 BID [facility] ASSESSMENT/PLAN: Severe sepsis secondary to pylosalpinx, PID Anemia Hyponatremia (resolved) Neurologic -Patient is sleepy, arousable to voice. AO x3. -Monitor for signs of mental status changes Cardiac -Tachycardic to 104, likely secondary to severe sepsis. -Telemetry monitoring while in ICU Pulmonary -Patient currently saturating well on room air. -Maintain oxygen saturation greater than 90% Infectious disease Severe sepsis secondary to pylosalpinx, PID -Doxycycline, Flagyl. Penicillin allergy noted. -ID evaluation (Dr. Alvarado) appreciated. -Transvaginal US reveals negative right sided ovarian torsion. Noted enlarged ovary with multiple hemorrhagic follicles, cysts. Negative free fluid. -CT abdomen, pelvis reveals 8.8cm complex multiloculated right adnexal mass concerning for hydrosalpinx/ pylosalpinx vs. malignancy. 4.0 cm hypodensity concerning for ovarian cyst. Negative free fluid, free air. Appendix unremarkable. -OBGYN evaluation appreciated. Will transfer patient to tertiary care facility for higher level of care. FEN -Fluids: IV normal saline bolus -Electrolytes: Follow BMP, replete as necessary -Nutrition: NPO pending OBGYN evaluation Prophylaxis -SCD bilateral lower extremity. Holding chemical anticoagulation pending OBGYN evaluation Disposition We will continue to follow the patient. Thank you for this consultative opportunity. Patient for transfer patient to tertiary care facility for higher level of care. Visit type - Emergency Visit Emergency Visit: Yes ED Registration Date: 03/14/19 Care time: The patient presented to the Emergency Department on the above date and was hospitalized for further evaluation of their emergent condition. - New Patient This patient is new to me today: Yes Date on this admission: 03/14/19 - Critical Care Critical Care patient: Yes Total Critical Care Time (in minutes): 36 Critical Care Statement: The care of this patient involved high complexity decision making to prevent further life threatening deterioration of the patient 's condition and/or to evaluate & treat vital organ system(s) failure or risk of failure. ATTENDING PHYSICIAN STATEMENT I saw and evaluated the patient. I reviewed the resident's note and discussed the case with the resident. I agree with the resident's findings and plan as documented. SUBJECTIVE: OBJECTIVE: ASSESSMENT AND PLAN:
[2019-03-14 08:22] LABS: ALBUMIN 2.2 g/dl (3.4-5.0); BILIRUBIN,TOTAL 0.3 mg/dL (0.2-1); BLOOD UREA NITROGEN 8.2 mg/dL (7-18); CALCIUM 7.1 mg/dL (8.5-10.1); CREATININE 0.9 mg/dL (0.55-1.3); MAGNESIUM 1.7 mg/dL (1.8-2.4); POTASSIUM 3.7 mmol/L (3.5-5.1); TOT PROT 5.8 g/dl (6.4-8.2)
[2019-03-14] MEDS ORDERED: MAGNESIUM SULF 50% (8.12 MEQ/2 ML-1 GM VIAL) IVPB ONE (08:24)
[2019-03-14] MEDS ORDERED: MAGNESIUM SULF 50% (8.12 MEQ/2 ML-1 GM VIAL) ONE (08:27)
--- NOTE | 2019-03-14 09:08 | CONSULT ---
Consult Consult Specialty:: MEDICAL RESEARCH TECH Reason for Consultation:: Suspected PID, TOA - History of Present Illness Chief Complaint: RLQ pain History of Present Illness: 44yo presented to the ER with R sided abdominal pain x 1 week, accompanied with loose stools. Non radiating. No N/V. No fevers/chills. No sick contacts. Reports yellow/brownish vaginal discharge <1 week. Sexually active with her , last in January. LMP in Jan 2019, regular cycles No history of abnormal paps or STI's Reports MEDICAL RESEARCH TECH in [facility] History of LSO 3-4 yrs ago for ovarian cyst. Known history of small Right ovarian cyst - History Source History Provided By: Patient Limitations to Obtaining History: No Limitations - Past Medical History BECK OPERATOR: No: Alzheimer's, CVA, Dementia, Migraine, Multiple Sclerosis, Peripheral Neuropathy, Parkinson's, Seizure, Syncope, TIA, Vertigo, Other Cardio/Vascular: No: AFIB, Aneurysm, Aortic Insufficiency, Aortic Stenosis, CAD , CHF, Deep Vein Thrombosis, HTN, Hyperlipdemia, VT, Mitral Insufficiency, Mitral Stenosis, Murmur, Pulmonary Hypertension, Other Pulmonary: No: Asthma, Bronchitis, Cancer, COPD, O2 Dependent, Pneumonia, Previously Intubated, Pulmonary Embolus, Pulmonary Fibrosis, Sleep Apnea, Other Gastrointestinal: No: Ascites, Cancer, Constipation, Crohn's Disease, Diverticulitis, Diverticulosis, Esophageal Varices, Gastritis, GERD, GI Bleed, Hemorrhoids, Hiatal Hernia, Inflamatory Bowel Disease, Irritable Bowel Disease, Pancreatitis, Peptic Ulcer Disease, Ulcerative Colitis, Other Hepatobiliary: No: Cirrhosis, Cholelithiasis, Cholecystitis, Choledocholithiasis , Hepatitis A, Hepatitis B, Hepatitis C, Other Renal/: No: Renal Failure, Renal Inusuff, BPH, Cancer, Hematuria, Hemodialysis , Neurogenic Bladder, Renal Calculi, UTI, Other ...LMP Comment: January 2019 ...: No ...: 1 ...Para: 1 Infectious Disease: No: AIDS, C-Diff, Herpes Zoster, HIV, MRSA, STD's, Tuberculosis, VREF, Other - Past Surgical History Additional Surgical History: Left Salpingo-oophrectomy- laparoscopic - Alcohol/Substance Use Hx Alcohol Use: No History of Substance Use: reports: None - Smoking History Smoking history: Never smoked Have you smoked in the past 12 months: No Aproximately how many cigarettes per day: 0 - Social History Usual Living Arrangement: With Spouse ADL: Independent History of Recent Travel: No Home Medications - Allergies Allergies/Adverse Reactions: Allergies Allergy/AdvReac Type Severity Reaction Status Date / Time Penicillins Allergy Hives Verified 03/14/19 02:41 - Home Medications Home Medications: Ambulatory Orders Doxycycline Hyclate 100 mg PO BID #14 tablet 03/14/19 Review of Systems - Review of Systems Constitutional: reports: Weakness Gastrointestinal: reports: Abdominal Pain, Diarrhea Genitourinary: reports: Other (vaginal discharge) Physical Exam Vital Signs: Vital Signs Temperature 98.2 F 03/14/19 07:35 Pulse Rate 105 H 03/14/19 08:18 Respiratory Rate 18 03/14/19 08:18 Blood Pressure 90/64 03/14/19 08:18 O2 Sat by Pulse Oximetry (%) 95 03/14/19 08:18 Constitutional: Yes: Well Nourished, No Distress, Calm Gastrointestinal: Yes: Other (soft, RLQ tenderness, no rebound, +voluntary guarding) Labs: CBC, BMP 03/14/19 07:41 03/14/19 07:41 Imaging - Results Cat Scan: Image Reviewed Ultrasound: Image Reviewed Assessment/Plan 44yo with presumed PID w/ TOA, sepsis Chart including labs and vitals reviewed. GC/CT collected, pending, although low suspicion given monogamous, no history of STIs, and age demographic not typical for PID 2/2 GC/CT. No official report from imaging CT/TVUS yet. Images reviewed- enlarged R adnexal mass separate from ovary. Already known history of R ovarian cyst ( either stable or slightly enlarged from when originally diagnosed) Appreciate ID recs for antibiotic regimen Needs IR evaluation for drainage of pelvic mass, MEDICAL RESEARCH TECH surgery not indicated- not clear MEDICAL RESEARCH TECH etiology, possible GI source and patient septic (hypotension, tachycardia, elevated WBC)- surgical intervention could further disseminate the infection. Recommend transfer to [facility] for further care given sepsis and Interventional radiology needs If condition changes, please consult OBGYN tangible personal property appraiser Joce Olivas MD
[2019-03-14 09:38] VITALS: BMI 24.6
[2019-03-14] MEDS ORDERED: DOXYCYCLINE HYCLATE 100 MG VIAL ONE ×2 (09:58→10:23)
[2019-03-14] MEDS ORDERED: DEXTROSE 5%-WATER 100 ML IVPB ONE ×2 (09:58→10:23)
[2019-03-14] MEDS ORDERED: DOXYCYCLINE INJECTION 100 MG in DEXTROSE 5%-WATER 100 ML IVPB SCH (10:00)
[2019-03-14] MEDS ORDERED: HYDROmorphone HCl 2 MG/ML VIAL IVPUSH ONE (10:30)
[2019-03-14 10:33] LABS: ANISOCYTOSIS 0; MACROCYTOSIS 0; PLATELET ESTIMATE NORMAL
[2019-03-14 10:34] LABS: RPR NONREACTIVE (NONREACTIVE)
[2019-03-14] MEDS ORDERED: MUPIROCIN 2% TOPICAL OINTMENT FOR DECOLONIZATION NS SCH (11:00)
--- NOTE | 2019-03-14 11:05 | PN ---
Progress Note (short form) - Note Progress Note: pipeline technician consult is done by Dr Olivas hence I will not do consult again . speak with Dr Olivas if any issues to be discussed
--- NOTE | 2019-03-14 12:00 | PN ---
Teaching Attending Note Name of Resident: Brandon Rocha ATTENDING PHYSICIAN STATEMENT I saw and evaluated the patient. I reviewed the resident's note and discussed the case with the resident. I agree with the resident's findings and plan as documented. SUBJECTIVE: Pt seen and examined in the ICU. Borderline hypotension, still with pelvic pain. CT A/P findings noted. OBJECTIVE: Vital Signs Period Temp Pulse Resp BP Sys/Ceballos Pulse Ox Last 24 Hr 98.2 F-101.9 F 84-118 14-22 84-128/52-107 95-100 Intake & Output 03/11/19 03/12/19 03/13/19 03/14/19 23:59 23:59 23:59 23:59 Intake Total 3000 Balance 3000 Weight 58.06 kg 63.049 kg Gen: NAD at rest Heart: RRR Lung: decreased breath sounds at the bases Abd: soft, TTP lower abdomen, no rebound Ext: no edema CBC, BMP 03/14/19 07:41 03/14/19 07:41 Active Medications Acetaminophen (Tylenol -) 650 mg PO Q4H PRN PRN Reason: FEVER Chlorhexidine Gluconate (Hibiclens For Decolonization -) 1 applic TP HS JULY Metronidazole (Flagyl 500mg Premixed Ivpb -) 500 mg in 100 mls @ 100 mls/hr IVPB Q8H-IV JULY Last Admin: 03/14/19 11:37 Dose: 100 mls/hr Levofloxacin (Levaquin 750 Mg Premixed Ivpb -) 750 mg in 150 mls @ 100 mls/hr IVPB DAILY JULY; Protocol Last Admin: 03/14/19 10:29 Dose: 100 mls/hr Doxycycline Hyclate 100 mg/ (Dextrose) 100 mls @ 100 mls/hr IVPB BID JULY Last Admin: 03/14/19 10:30 Dose: 100 mls/hr Sodium Chloride (Normal Saline -) 1,000 mls @ 150 mls/hr IV ASDIR JULY Last Admin: 03/14/19 08:17 Dose: 150 mls/hr Mupirocin (Bactroban Ointment (For Decolonization) -) 1 applic NS BID JULY Stop: 03/19/19 10:59 Last Admin: 03/14/19 11:37 Dose: 1 applic ASSESSMENT AND PLAN: r/o Tubo-Ovarian Abscess Sepsis Hyponatremia improved Anemia - continue IV antibiotics - f/u cultures - IVF boluses - monitor urine output, creatinine - for transfer to tertiary medical center per M1A1 TANK CREWMAN - DVT prophylaxis
--- NOTE | 2019-03-14 12:40 | PN ---
Progress Note (short form) - Note Progress Note: ID CONSULT DICTATED PID R/O TOA PCN ALLERGY AWAIT C/S EMPIRIC CEFOXITIN/ DOXYCYCLINE
--- NOTE | 2019-03-14 13:31 | CONS ---
INFECTIOUS DISEASE CONSULTATION DATE OF CONSULTATION: 03/14/2019 The patient is a 44-year-old female who is evaluated for PID, probable tubo-ovarian abscess. She is a 44-year-old female who was admitted with a 1-week history of worsening lower abdominal pain, dysuria, and pelvic pain with bowel movements. She also reported a vaginal discharge, with headache, chills, and weight loss. She was evaluated in the emergency room where a pelvic exam revealed cervical motion tenderness. Imaging studies of the abdomen showed a right adnexal mass. Her course was complicated by white blood cell count 25,000. Patient is and monogamous. She is sexually active with her . However, has not been active for the past month or so. She denies prior history of sexually transmitted diseases. Denies risk factors for HIV. PAST MEDICAL HISTORY: Essentially negative. ALLERGIES: PENICILLIN. Patient reports developing hives. MEDICATIONS: Tylenol, doxycycline, Bactroban, Hibiclens. SOCIAL HISTORY: Resides at home with significant other. No active tobacco or alcohol use. SYSTEMS REVIEW: Neurologic: No loss of consciousness, seizure activity, focal weakness. Cardiac: Negative chest pain or palpitations. Respiratory: Negative cough or sputum production. Gastrointestinal: Negative vomiting or diarrhea. Genitourinary: As per HPI. LABORATORY DATA: White count 25,000, hematocrit 27.6, platelets 416. Creatinine 0.9. Cultures are pending. PHYSICAL EXAMINATION: General: She is awake and alert, in no acute distress. Vital Signs: Temperature 98.9, T-max 101.9; blood pressure 89/56; pulse 95, regular; respirations 14 per minute. HEENT: Sclerae are anicteric. Heart: Sounds S1, S2. Lungs: Clear. Abdomen: Soft. There is lower abdominal tenderness bilaterally to palpation. No mass, rebound, or rigidity. Extremities: Negative for edema. IMPRESSION: 1. Pelvic inflammatory disease, rule out right tubo-ovarian abscess. 2. Marked leukocytosis, rule out sepsis secondary to genitourinary focus. 3. PENICILLIN allergy. Await culture results. Empiric antibiotic coverage with cefoxitin and doxycycline. REAL TIME TRADER evaluation and followup. Thank you for the kind referral. HERMAN MENCHACA M.D. [id number]
[2019-03-14 13:57] VITALS: PULSE 92
[2019-03-14 14:01] VITALS: BP 97/60
[2019-03-14 14:07] VITALS: TEMP 97.9
--- NOTE | 2019-03-14 14:41 | DS ---
Physical Exam: SUBJECTIVE: Patient seen and examined OBJECTIVE: Vital Signs Period Temp Pulse Resp BP Sys/Ceballos Pulse Ox Last 24 Hr 97.9 F-101.9 F 84-118 14-22 84-128/52-107 95-100 PHYSICAL EXAM GENERAL: The patient is lethargic, fully oriented. GCS 14(3,5,6) HEAD: Normal with no signs of trauma. EYES: extraocular movements intact, sclera anicteric, conjunctiva clear and w/o pallor ENT: Ears normal, nares patent, moist mucous membranes NECK: Trachea midline, full range of motion, supple. LUNGS: Breath sounds equal, clear to auscultation bilaterally, no wheezes, no crackles, no accessory muscle use. Breathing RA HEART: Regular rate and rhythm, S1, S2 without murmur, rub or gallop. ABDOMEN: multiple well-healed lap incision sites, well-healed supraumbilical incision(~3-4cm). Severe tenderness to palpitation throughout all quadrants, most severe in the hypogastrium. Involving guarding upon palpation. PELVIC EXAM done by ED, as follows: " External genitalia normal without lesions. Vaginal vault is clear without blood or discharge. Cervix is long and closed. +Cervical motion tenderness. Uterus is nontender and normal in size. Bilateral adnexal tenderness. " EXTREMITIES: 2+ pulses, warm, well-perfused, no edema. NEUROLOGICAL: Normal speech. Move all limbs spontaneously PSYCH: Normal mood, normal affect. SKIN: Warm, dry, normal turgor, no rashes or lesions noted. LABS Laboratory Results - last 24 hr 03/13/19 03/13/19 03/13/19 22:05 22:05 23:39 WBC 25.6 H RBC 2.93 L Hgb 8.5 L Hct 26.3 L MCV 89.7 MCH 28.8 MCHC 32.2 RDW 15.5 Plt Count 458 H MPV 7.4 L Absolute Neuts (auto) 21.2 H Total Counted 100 Neutrophils % 82.5 Neutrophils % (Manual) 70.0 Band Neutrophils % 4.0 Lymphocytes % 8.2 Lymphocytes % (Manual) 16.0 Monocytes % 8.3 Monocytes % (Manual) 10 Eosinophils % 0.2 Eosinophils % (Manual) Basophils % 0.8 Basophils % (Manual) Myelocytes % (Man) Promyelocytes % (Man) Blast Cells % (Manual) Nucleated RBC % 0 Metamyelocytes Hypochromia Platelet Estimate Slt increase Platelet Comment No clotting detected Polychromasia Poikilocytosis Anisocytosis Microcytosis Macrocytosis Sodium Potassium Chloride Carbon Dioxide Anion Gap BUN Creatinine Est GFR (CKD-EPI)AfAm Est GFR (CKD-EPI)NonAf Random Glucose Lactic Acid Calcium Phosphorus Magnesium Total Bilirubin AST ALT Alkaline Phosphatase Total Protein Albumin Lipase Urine Color Yellow Urine Appearance Clear Urine pH >= 9.0 H D Ur Specific E[place] 1.022 Urine Protein 2+ H Urine Glucose (UA) Negative Urine Ketones Negative Urine Blood Negative Urine Nitrite Negative Urine Bilirubin Negative Urine Urobilinogen 1.0 Ur Leukocyte Esterase Negative Urine WBC (Auto) 4 Urine RBC (Auto) 4.0 Urine Casts (Auto) 1 U Epithel Cells (Auto) 5.0 Urine Bacteria (Auto) 77.9 Urine HCG, Qual Negative RPR Titer HIV 1&2 Antibody Screen HIV P24 Antigen 03/13/19 03/13/19 03/14/19 23:39 23:39 03:00 WBC RBC Hgb Hct MCV MCH MCHC RDW Plt Count MPV Absolute Neuts (auto) Total Counted Neutrophils % Neutrophils % (Manual) Band Neutrophils % Lymphocytes % Lymphocytes % (Manual) Monocytes % Monocytes % (Manual) Eosinophils % Eosinophils % (Manual) Basophils % Basophils % (Manual) Myelocytes % (Man) Promyelocytes % (Man) Blast Cells % (Manual) Nucleated RBC % Metamyelocytes Hypochromia Platelet Estimate Platelet Comment Polychromasia Poikilocytosis Anisocytosis Microcytosis Macrocytosis Sodium 132 L Potassium 4.2 Chloride 99 Carbon Dioxide 27 Anion Gap 6 L BUN 12.9 Creatinine 0.6 Est GFR (CKD-EPI)AfAm 130.30 Est GFR (CKD-EPI)NonAf 112.42 Random Glucose 104 Lactic Acid 1.8 Calcium 8.4 L Phosphorus Magnesium Total Bilirubin 0.4 AST 37 ALT 48 Alkaline Phosphatase 106 Total Protein 7.0 Albumin 2.6 L Lipase 146 Urine Color Urine Appearance Urine pH Ur Specific [place] Urine Protein Urine Glucose (UA) Urine Ketones Urine Blood Urine Nitrite Urine Bilirubin Urine Urobilinogen Ur Leukocyte Esterase Urine WBC (Auto) Urine RBC (Auto) Urine Casts (Auto) U Epithel Cells (Auto) Urine Bacteria (Auto) Urine HCG, Qual RPR Titer HIV 1&2 Antibody Screen HIV P24 Antigen 03/14/19 03/14/19 03/14/19 07:41 07:41 07:41 WBC 23.8 H RBC 3.04 L Hgb 9.0 L Hct 27.6 L MCV 90.8 MCH 29.7 MCHC 32.7 RDW 15.8 H Plt Count 416 MPV 7.4 L Absolute Neuts (auto) 21.8 H Total Counted Neutrophils % 91.4 H Neutrophils % (Manual) 70.0 Band Neutrophils % 17.0 Lymphocytes % 3.2 L D Lymphocytes % (Manual) 4.0 L D Monocytes % 5.3 Monocytes % (Manual) 5 Eosinophils % 0.0 D Eosinophils % (Manual) 0.0 Basophils % 0.1 Basophils % (Manual) 0.0 Myelocytes % (Man) 1 Promyelocytes % (Man) 0 Blast Cells % (Manual) 0 Nucleated RBC % 0 Metamyelocytes 1 Hypochromia 0 Platelet Estimate Normal Platelet Comment Polychromasia 0 Poikilocytosis 0 Anisocytosis 0 Microcytosis 0 Macrocytosis 0 Sodium 139 Potassium 3.7 Chloride 110 H Carbon Dioxide 23 Anion Gap 6 L BUN 8.2 Creatinine 0.9 Est GFR (CKD-EPI)AfAm 91.40 Est GFR (CKD-EPI)NonAf 78.86 Random Glucose 81 Lactic Acid Calcium 7.1 L Phosphorus 3.0 Magnesium 1.7 L Total Bilirubin 0.3 AST 34 ALT 35 Alkaline Phosphatase 96 Total Protein 5.8 L Albumin 2.2 L Lipase Urine Color Urine Appearance Urine pH Ur Specific [place] Urine Protein Urine Glucose (UA) Urine Ketones Urine Blood Urine Nitrite Urine Bilirubin Urine Urobilinogen Ur Leukocyte Esterase Urine WBC (Auto) Urine RBC (Auto) Urine Casts (Auto) U Epithel Cells (Auto) Urine Bacteria (Auto) Urine HCG, Qual RPR Titer Nonreactive HIV 1&2 Antibody Screen Negative HIV P24 Antigen Negative 03/14/19 07:41 WBC RBC Hgb Hct MCV MCH MCHC RDW Plt Count MPV Absolute Neuts (auto) Total Counted Neutrophils % Neutrophils % (Manual) Band Neutrophils % Lymphocytes % Lymphocytes % (Manual) Monocytes % Monocytes % (Manual) Eosinophils % Eosinophils % (Manual) Basophils % Basophils % (Manual) Myelocytes % (Man) Promyelocytes % (Man) Blast Cells % (Manual) Nucleated RBC % Metamyelocytes Hypochromia Platelet Estimate Platelet Comment Polychromasia Poikilocytosis Anisocytosis Microcytosis Macrocytosis Sodium Potassium Chloride Carbon Dioxide Anion Gap BUN Creatinine Est GFR (CKD-EPI)AfAm Est GFR (CKD-EPI)NonAf Random Glucose Lactic Acid 1.0 Calcium Phosphorus Magnesium Total Bilirubin AST ALT Alkaline Phosphatase Total Protein Albumin Lipase Urine Color Urine Appearance Urine pH Ur Specific [place] Urine Protein Urine Glucose (UA) Urine Ketones Urine Blood Urine Nitrite Urine Bilirubin Urine Urobilinogen Ur Leukocyte Esterase Urine WBC (Auto) Urine RBC (Auto) Urine Casts (Auto) U Epithel Cells (Auto) Urine Bacteria (Auto) Urine HCG, Qual RPR Titer HIV 1&2 Antibody Screen HIV P24 Antigen HOSPITAL COURSE: 44Fm w/ pmh of bilateral ovarian cysts presenting w/ complaint of severe, worsening lower abdominal pain x1week with brownish vaginal discharge and "pressure" upon urination. Endorsing loss of appetite, and loose BM w/o blood. Denies associated fever, chills, nausea, vomiting, burning with urination. Engages in monogamous nonbarrier intercourse with . Denies h/o STIs. Last intercourse was ~1mo prior. LMP was ~2weeks prior. Has had laparoscopic removal of Left adnexal d/t large ovarian cyst. Has known Right ovarian cyst. Presented with ED vitals showing T 100.5F, HR 110, 124/67. WBC 15.6, H/H 8.5/ 26.3; UA neg for UTI. TVUS(03/13/19) showing Right adnexal mass(9.2 x5.5cm). CT A/P(03/14/19) showing 8.2 x6cm Right adnexal mass suggestive of pyosalpinx/tubo- ovarian abscess. SALARY MANAGER(Brendon) consult thought R pelvic mass is separate from ovary, thought possibly GI; rec IR drainage. Second SALARY MANAGER(Theodora) refused to evaluate patient. Given cefoxitin and doxycycline d/t reported pencillin allergy (hives). Review of images with Rads(Abdo) thought mass to adnexal. Patient admitted to ICU for closer monitoring. Patient to be transferred for HLOC, with SALARY MANAGER service that can intervene as necessary Date of Admission:03/14/19 Date of Discharge: 03/14/19 Minutes to complete discharge: 20 Discharge Summary Problems reviewed: Yes Reason For Visit: FEMALE PELVIV INFLAMMATORY DISEASE,SEPSIS Current Active Problems Pelvic inflammatory disease (Acute) Sepsis (Acute) Condition: Stable - Instructions Diet, Activity, Other Instructions: You will be transferred to a tertiary care center for higher level of care. Referrals: Sofia Castaneda MD [Primary Care Provider] - Disposition: TRANSFER ACUTE CARE/OTHER HOSP - Home Medications Comprehensive Discharge Medication List: Ambulatory Orders Doxycycline Hyclate 100 mg PO BID #14 tablet 03/14/19 Problem List - Problems (1) Pelvic inflammatory disease Code(s): N73.9 - FEMALE PELVIC INFLAMMATORY DISEASE, UNSPECIFIED (2) Sepsis Code(s): A41.9 - SEPSIS, UNSPECIFIED ORGANISM This patient is new to me today: Yes Date on this admission: 03/14/19 Emergency Visit: Yes ED Registration Date: 03/14/19 Care time: The patient presented to the Emergency Department on the above date and was hospitalized for further evaluation of their emergent condition. Critical Care patient: No - Discharge Referral Referred to [facility] No ATTENDING PHYSICIAN STATEMENT I saw and evaluated the patient. I reviewed the resident's note and discussed the case with the resident. I agree with the resident's findings and plan as documented. SUBJECTIVE: OBJECTIVE: ASSESSMENT AND PLAN:
--- NOTE | 2019-03-14 14:46 | EKG ---
Test Reason : Blood Pressure : / mmHG Vent. Rate : 109 BPM Atrial Rate : 109 BPM P-R Int : 146 ms QRS Dur : 072 ms QT Int : 354 ms P-R-T Axes : 053 025 033 degrees QTc Int : 476 ms SINUS TACHYCARDIA NONSPECIFIC T WAVE ABNORMALITY ABNORMAL ECG NO PREVIOUS ECGS AVAILABLE Confirmed by YOVANI PEREIRA MD ([id number]) on 03/14/2019 2:46:06 PM Referred By: Confirmed By:YOVANI PEREIRA MD
[2019-03-14] MEDS ORDERED: CEFOXITIN SODIUM 2 GM in DEXTROSE 5%-WATER - 100 ML IVPB SCH (15:00)
[2019-03-14] MEDS ORDERED: CHLORHEXIDINE GLUCONATE 4% CLEANSER FOR DECOLONIZATION TP SCH (22:00)
[2019-03-15 20:09] LABS: HEP B CORE AB, TOT Negative (Negative)
== END 2019-03-14 15:01 | disposition short-term general hospital (02) | DRG 720 ==
LOC: JER 20:23 → JERBED 03-14 04:20 → JICU 03-14 09:00
PROVIDERS: ADMIT Internal Medicine; ATTEND Hospitalist
DX: A41.9 Sepsis, unspecified organism (principal); N73.9 Female pelvic inflammatory disease, unspecified; N83.202 Unspecified ovarian cyst, left side; N83.201 Unspecified ovarian cyst, right side; E87.1 Hypo-osmolality and hyponatremia; D64.9 Anemia, unspecified; N72 Inflammatory disease of cervix uteri; D72.829 Elevated white blood cell count, unspecified; N70.93 Salpingitis and oophoritis, unspecified; I95.9 Hypotension, unspecified; R00.0 Tachycardia, unspecified
CPT/HCPCS: 36415; 74177-TC; 76830-TC; 80053; 81003; 83605; 83690; 83735; 84100; 84703; 85025; 86593; 86704; 86705; 86706; 86707; 86708; 86709; 87040; 87086; 87340; 87350; 87389; 87491; 87522; 87591; 87661; 93005; 93010; 99285-25; J0131; J7030